=== PATIENT | female | born 1985 | race Caucasian/White ===

== ENCOUNTER → 2017-03-13 | Outpatient (CLI) | payer MEDICAID ==
[2017-03-13 20:16] LABS: BUN 9 mg/dL (7-18)
[2017-03-13 20:17] LABS: GFR (ESTIMATED) 83 ML/MIN (59-)
== END ==
LOC: LAB 16:32
PROVIDERS: Physician Assistant
DX: R73.9 Hyperglycemia, unspecified (principal); E03.9 Hypothyroidism, unspecified

== ENCOUNTER → 2017-03-16 | Outpatient (CLI) | payer MEDICAID ==
[~2017-03-16] MED LIST: ADIPEX-P37.5 MG PO; BACTRIM DS 8001 TAB PO; BIAXIN FILMTAB500 MG PO; BUPRENORPHINE H1 TA2 SL; FERROUS SULFAT325 M2 PO; FLEXERIL10 MG PO; GABAPENTIN 600600 MG PO; LEVOTHYROXINE0.1 M1 PO; LORTAB 5/500 501 TAB PO; MONTELUKAST SOD10 MG PO; MOTRIN 400MG.400 MG PO; MOTRIN400 MG PO; MULTIVITAMIN1 TA1 PO; NAPROSYN 500MG500 MG PO; NOMEDS XX; PERCOCET 5/3251 EACH PO; PRENATAL1 TA4 PO; PROPRANOLOL ER80 MG PO; SUBOXONE 8 MG-21 TAB SL; TYLENOL 325MG325 MG PO; TYLENOL/COD #31 EACH PO; WELLBUTRIN SR200 MG PO; ZOFRAN4 MG PO; [UNRECOGNIZED DRUG - OTHER] PO
--- NOTE | 2017-03-16 09:51 | RADIOLOGY REPORT PS360 ---
US RUQ-(ABD LTD)1ORGAN/QUAD/FU COMPARISON: Ultrasound the gallbladder 08/19/2010 HISTORY: ] Quadrant pain TECHNIQUE: January ultrasound right upper quadrant FINDINGS: The liver is normal in size and shows mild diffuse fatty infiltration. There are no focal lesions. The gallbladder is normal in size with no definite gallstones or sludge and the common bile duct is normal. The pancreas is normal although a portion of the tail is obscured by bowel gas. Right kidney measures 10.2 x 5.0 x 4.9 cm and shows a good cortical medullary junction with no hydronephrosis or other abnormality. IMPRESSION: Mild hepatic steatosis otherwise unremarkable study
== END ==
LOC: RAD 09:00
DX: R10.11 Right upper quadrant pain (principal)

== ENCOUNTER → 2017-03-20 | Outpatient (CLI) | payer MEDICAID ==
--- NOTE | 2017-03-20 15:10 | RADIOLOGY REPORT PS360 ---
US THYROID HISTORY: Follow-up thyroid nodules THYROID NODULE ORDERING PHYSICIAN: Mayur Zayas MD PATIENT AGE: 31 years COMPARISON: 09/22/2016 FINDINGS: Right lobe: 3.9 x 1.3 x 1.1 cm. There is an ill-defined 9 x 6 mm isoechoic nodular area in the upper pole on the right unchanged. Slight decreased echogenicity noted along the posterior aspect of the right lobe and may be due to a parathyroid gland probably unchanged. Left lobe: 2.9 x 0.9 x 1.1 cm with heterogeneous echogenicity. 9 x 6 mm slightly hypoechoic nodules present in the upper pole. This nodule margin is somewhat irregular and micronodular. Overall, the size is not significant changed however the margin of the nodule on the sagittal images somewhat worrisome. Consider fine-needle aspiration. . Isthmus: Slightly thickened at 4 mm IMPRESSION: There are bilateral thyroid nodules. The nodules are not significant changed in size. The nodule on the left however has somewhat irregular margin with micronodularity and somewhat worrisome. Consider fine-needle aspiration with ultrasound guidance for further evaluation
== END ==
LOC: RAD 13:00 → LAB 13:11 → RAD 13:11
DX: E04.1 Nontoxic single thyroid nodule (principal)